=== PATIENT | female | born 1980 | race Caucasian/White ===

== ENCOUNTER → 2023-11-11 10:26 | Outpatient (REF) | payer OTHER, SELFPAY | LOC: HWWDC 10:26 | PROVIDERS: ATTENDING PHYSICIAN Nurse Practitioner | DX: Z12.31 Encounter for screening mammogram for malignant neoplasm of breast (principal) | CPT/HCPCS: 77063; 77067 ==

== ENCOUNTER → 2024-12-12 12:27 | Outpatient (REF) | payer OTHER, SELFPAY | LOC: HWWDC 12:27 | PROVIDERS: FAMILY PHYSICIAN Internal Medicine | DX: Z12.31 Encounter for screening mammogram for malignant neoplasm of breast (principal) | CPT/HCPCS: 77063; 77067 ==